=== PATIENT | male | born 1955 ===

== ENCOUNTER 2021-07-10 19:00 | Outpatient (CLI) | payer MEDICARE, OTHER | END 2021-07-10 19:01 | disposition home or self-care (01) | LOC: SLEEPLAB 19:00 | DX: G47.33 Obstructive sleep apnea (adult) (pediatric) (principal); I10 Essential (primary) hypertension; I63.9 Cerebral infarction, unspecified | CPT/HCPCS: 95810 ==

== ENCOUNTER 2021-07-16 19:30 | Outpatient (CLI) | payer MEDICARE, OTHER | END 2021-07-16 19:31 | disposition home or self-care (01) | LOC: SLEEPLAB 19:30 | DX: G47.33 Obstructive sleep apnea (adult) (pediatric) (principal); I10 Essential (primary) hypertension; I63.9 Cerebral infarction, unspecified; G47.10 Hypersomnia, unspecified; R06.83 Snoring; E66.9 Obesity, unspecified; Z68.28 Body mass index [BMI] 28.0-28.9, adult | CPT/HCPCS: 95811 ==